=== PATIENT | male | born 1940 | race Caucasian/White ===

== ENCOUNTER → 2018-03-03 | Outpatient (CLI) | payer MEDICARE ==
[~2018-03-03] MED LIST: ASPI-496 PO; PANT40TA5 PO; TAMS-11 PO
== END | disposition home or self-care (01) ==
LOC: STAR 13:27
PROVIDERS: ATTEND Internal Medicine Gastroenterology
DX: Z01.818 Encounter for other preprocedural examination (principal); D13.1 Benign neoplasm of stomach
CPT/HCPCS: 93005

== ENCOUNTER 2018-03-13 08:17 | Day surgery (SDC) | payer MEDICARE ==
[~2018-03-13] VITALS: Ht 175.3 cm; Wt 79.0 kg
[2018-03-13] MEDS ORDERED: LACTATED RINGERS 1,000 ML IV SCH (09:04)
[2018-03-13] MEDS ORDERED: PROPOFOL 10 MG/ML, 20ML ONE ×3 (10:17→11:02)
== END 2018-03-13 13:10 ==
LOC: OUT 08:17
PROVIDERS: ATTEND Internal Medicine Gastroenterology
DX: K31.89 Other diseases of stomach and duodenum (principal); K21.9 Gastro-esophageal reflux disease without esophagitis; N40.0 Benign prostatic hyperplasia without lower urinary tract symptoms; I25.10 Atherosclerotic heart disease of native coronary artery without angina pectoris; Z88.0 Allergy status to penicillin; Z87.891 Personal history of nicotine dependence; Z79.82 Long term (current) use of aspirin
CPT/HCPCS: 43239; 88305; J2704; J7120; 93005